=== PATIENT | male | born 1995 | race Caucasian/White ===

== ENCOUNTER 2023-12-22 23:27 | Emergency (ER) | payer SELFPAY ==
--- NOTE | 2023-12-22 23:32 | ED_ITS ---
Discharge Plan Disposition Patient Disposition: Home, Self-Care Referrals Follow up/Referrals: Mathew Mercado DO [Staff Physician] - See instructions Provider,Referral, [Primary Care Provider] - See instructions Activity Restrictions/Add. Instructions Additional Instructions/Restrictions: Please call Dr. Mercado's office on Monday to schedule follow-up in clinic. Please return to the emergency department if you develop any new or worsening symptoms or become concerned for your health. Please keep right arm in sling. Do not bear weight with the right arm until you see Dr. Mercado in clinic. Use wrist splint of the left wrist as needed for pain. Recommend not lifting weight with the left upper extremity if it produces pain. Clinical Impressions Clinical Impression: Left wrist sprain Fracture of radial head, right, closed Qualifiers: Encounter type: initial encounter Fracture alignment: nondisplaced Qualified Code(s): S52.124A - Nondisplaced fracture of head of right radius, initial encounter for closed fracture Discharge ED Provider: Sergo Butler General Adult HPI General Chief complaint: Fall Stated complaint: fall, pain in left arm and wrist Time Seen by Provider: 12/22/23 23:32 History of Present Illness HPI narrative: 28-year-old male without significant past medical history presents with bilateral upper extremity pain after fall from standing. He reports that he had a mechanical fall from standing, braced himself with both arms. He has pain on the left upper extremity from the elbow down to the fingers. He has pain in the right upper extremity from the mid forearm up to the shoulder. This happened approximately 8 hours prior to arrival. He denies any numbness or tingling. He did not take any pain medication prior to arrival. Related Data Allergies Allergy/AdvReac Type Severity Reaction Status Date / Time No Known Allergies Allergy Verified 12/22/23 23:49 [facility] Disclaimer: The information contained in this section may have been updated after the dana nt was seen, as this information can be updated by other users. Social History Smoking Status: Unknown if ever smoked alcohol intake: never current occupational status: employed Travel in the last 8 weeks: None ROS Obtained: Yes All systems reviewed & no additional complaints except as documented Physical Exam General General appearance: alert and in no apparent distress Head Head exam: atraumatic and normocephalic Eye Eye exam: Present normal appearance, PERRL and EOMI ENT ENT exam: Present normal oropharynx and normal external ear exam Neck Neck exam: Present normal inspection and full ROM Chest Chest inspection: Present normal inspection and symmetric chest wall rise; Absent tenderness Respiratory Respiratory exam: Present normal lung sounds bilaterally; Absent respiratory distress Cardiovascular Cardiovascular exam: Present regular rate and normal rhythm Abdominal Exam Abdominal exam: Present soft; Absent distention, tenderness or guarding Extremities Exam Extremities exam: Present other (Tenderness sensation of the left elbow forearm wrist hand with ecchymoses over the dorsal wrist. Tenderness to the right elbow shoulder humerus without obvious deformity. No lacerations noted.) Back Exam Back exam: Present normal inspection; Absent tenderness Neurological Exam Neurological exam: Present alert and oriented X3; Absent motor sensory deficit Psychiatric Psychiatric exam: Present normal affect and normal mood Skin Skin exam: Present warm, dry and normal color Lymphatic Lymphatic Findings: no adenopathy Medical Decision Making Medical Records Medical records reviewed: Yes I reviewed the patient's medical records. Gerardo Inquiry Pt receiving controlled substance: No Gerardo was queried for this patient: No Vital Signs: 12/22/23 23:40 12/23/23 00:30 12/23/23 01:00 Temperature 98.2 F Temperature Source Oral Pulse Rate 78 80 Pulse Rate [Right Brachial] 78 Respiratory Rate 19 20 18 Blood Pressure 108/72 L 124/81 Blood Pressure [Right Arm] 120/99 H Blood Pressure Mean 83 90 Blood Pressure Mean [Right Arm] 106 Blood Pressure Source [Right Arm] Automatic Cuff Blood Pressure Position [Right Arm] Sitting 02 Sat by Pulse Oximetry 98 95 95 Oxygen Delivery Method Room Air Room Air Room Air Lab Data Lab results reviewed: Yes I reviewed the patient's lab results. Orders (Tests/Meds): ED MEDICATIONS Discontinued Medications Generic Name Dose Route Start Last Admin Trade Name Weselyq PRN Reason Stop Dose Admin Acetaminophen 1,000 mg 12/22/23 23:40 12/23/23 00:16 Acetaminophen 500mg Tab PO 12/22/23 23:41 1,000 mg ONCE ONE Administration Ketorolac Tromethamine 30 mg 12/22/23 23:40 12/23/23 00:16 Ketorolac 30mg/Ml Vial IM 12/22/23 23:41 30 mg ONCE ONE Administration ORDERS Category Date Time Status Elbow XR left mininum 3 views [XR elbow LT min 3V] Stat Exams 12/22/23 23:40 Completed Elbow XR right minimum 3 views [XR elbow RT min 3V] Exams 12/22/23 23:40 Completed Stat Forearm XR left 2 views [XR forearm LT 2V] Stat Exams 12/22/23 23:40 Completed Forearm XR right 2 views [XR forearm RT 2V] Stat Exams 12/22/23 23:40 Completed Humerus XR right [XR humerus RT] Stat Exams 12/22/23 23:40 Completed Shoulder XR right miminum 2 views [XR shoulder RT min Exams 12/22/23 23:40 Completed 2V] Stat Wrist XR left minimum 3 views [XR wrist LT min 3V] Stat Exams 12/22/23 23:40 Completed XR hand LT min 3V Stat Exams 12/22/23 23:40 Completed Medical Decision Narrative: 28-year-old male without significant past medical history presents with bilateral upper extremity pain after a mechanical fall from standing.. History was obtained interactive discussion with patient. On arrival, patient is [afebrile, hemodynamically stable, satting appropriately, alert, oriented x4, GCS 15], moving all extremities spontaneously. Full physical exam performed and significant for bilateral upper extremity tenderness as documented above. Differential includes but is not limited to fracture, dislocation, neurovascular/ligamentous injury.. Patient was given p.o. Tylenol, IM Toradol for symptomatic management and correction of underlying abnormalities. Workup initiated including radiographs of the affected extremities.. On re-evaluation, patient [remains afebrile, HD stable.] Imaging independently interpreted by me and significant for right radial head fracture that is not significantly displaced. There is also an unfused osseous center or possibly old fracture of the left ulna, does not appear acute.. See radiology read for full review of final results. Given patient history, exam and workup, patient's presentation most likely represents right radial head fracture and left wrist sprain. Patient was given a right arm sling and a splint for the left wrist. He is given Dr. Mercado's number and instructed to follow-up for further assessment. Instructed to remain nonweightbearing of the right upper extremity until follow-up. Patient was instructed to take Tylenol and ibuprofen as needed for pain. He was discharged in stable condition. Procedures Risk/Benefits of Procedure(s) Were Explained: Yes Critical Care Critical Care Time Critical Care Time: No
[2023-12-22 23:40] VITALS: BP 120/99; PULSE 78; RESP 19; TEMP 36.8; O2SAT 98; BMI 39.0
--- NOTE | 2023-12-22 23:40 | XR_ITS ---
PROCEDURE INFORMATION: Exam: XR Left Hand Exam date and time: 12/22/2023 11:50 PM Age: 28 years old Clinical indication: Pain; Hand; Left; Additional info: Fall pain TECHNIQUE: Imaging protocol: Radiologic exam of the left hand. Views: 3 or more views. COMPARISON: No relevant prior studies available. FINDINGS: Bones/joints: Normal. Soft tissues: Normal. IMPRESSION: No acute findings.
--- NOTE | 2023-12-22 23:40 | XR_ITS ---
PROCEDURE INFORMATION: Exam: XR Right Elbow Exam date and time: 12/22/2023 11:56 PM Age: 28 years old Clinical indication: Pain; Elbow; Right; Additional info: Fall pain TECHNIQUE: Imaging protocol: Radiologic exam of the right elbow. Views: 3 or more views. COMPARISON: CR Humerus R 12/22/2023 11:42 PM FINDINGS: Bones/joints: Nondisplaced fracture of the radial head and neck with slight articular surface depression. No other osseous abnormality. Small elbow joint effusion. Soft tissues: Normal. IMPRESSION: Nondisplaced fracture of the radial head and neck with slight articular surface depression.
--- NOTE | 2023-12-22 23:40 | XR_ITS ---
PROCEDURE INFORMATION: Exam: XR Right Forearm Exam date and time: 12/23/2023 12:00 AM Age: 28 years old Clinical indication: Pain; Lower or forearm; Right; Additional info: Fall pain TECHNIQUE: Imaging protocol: Radiologic exam of the right forearm. Views: 2 views. COMPARISON: CR Elbow R 12/22/2023 11:56 PM FINDINGS: Bones/joints: Normal. Soft tissues: Normal. IMPRESSION: No acute findings.
--- NOTE | 2023-12-22 23:40 | XR_ITS ---
PROCEDURE INFORMATION: Exam: XR Left Wrist Exam date and time: 12/22/2023 11:52 PM Age: 28 years old Clinical indication: Pain; Wrist; Left; Additional info: Fall pain TECHNIQUE: Imaging protocol: Radiologic exam of the left wrist. Views: 3 or more views. COMPARISON: CR XR HAND LT MIN 3V 12/22/2023 11:50 PM FINDINGS: Bones/joints: Normal. Soft tissues: Normal. IMPRESSION: No acute findings.
--- NOTE | 2023-12-22 23:40 | XR_ITS ---
PROCEDURE INFORMATION: Exam: XR Left Elbow Exam date and time: 12/22/2023 11:56 PM Age: 28 years old Clinical indication: Pain; Elbow; Left; Additional info: Fall pain TECHNIQUE: Imaging protocol: Radiologic exam of the left elbow. Views: 3 or more views. COMPARISON: CR Forearm L 12/22/2023 11:55 PM FINDINGS: Bones/joints: No acute fracture or dislocation. Small well-defined ossicle at the medial aspect of the proximal ulna could be an unfused ossification center or the sequela of remote trauma. Soft tissues: Normal. IMPRESSION: No acute fracture or dislocation.
--- NOTE | 2023-12-22 23:40 | XR_ITS ---
PROCEDURE INFORMATION: Exam: XR Right Humerus Exam date and time: 12/22/2023 11:42 PM Age: 28 years old Clinical indication: Pain; Upper arm; Right; Additional info: Fall pain TECHNIQUE: Imaging protocol: Radiologic exam of the right humerus. Views: 2 or more views. COMPARISON: CR Shoulder R 12/22/2023 11:39 PM FINDINGS: Bones/joints: No humeral fracture. Mildly depressed radial head fracture. Soft tissues: Normal. IMPRESSION: 1. No humeral fracture. 2. Mildly depressed radial head fracture.
--- NOTE | 2023-12-22 23:40 | XR_ITS ---
PROCEDURE INFORMATION: Exam: XR Left Forearm Exam date and time: 12/22/2023 11:55 PM Age: 28 years old Clinical indication: Pain; Lower or forearm; Left; Additional info: Fall pain TECHNIQUE: Imaging protocol: Radiologic exam of the left forearm. Views: 2 views. COMPARISON: CR XR WRIST LT MIN 3V 12/22/2023 11:52 PM FINDINGS: Bones/joints: Normal. Soft tissues: Normal. IMPRESSION: No acute findings.
--- NOTE | 2023-12-22 23:40 | XR_ITS ---
PROCEDURE INFORMATION: Exam: XR Right Shoulder Exam date and time: 12/22/2023 11:39 PM Age: 28 years old Clinical indication: Pain; Shoulder; Right; Additional info: Fall, pain TECHNIQUE: Imaging protocol: Radiologic exam of the right shoulder. Views: 2 or more views. COMPARISON: No relevant prior studies available. FINDINGS: Bones/joints: Normal. Soft tissues: Normal. IMPRESSION: No acute findings.
[2023-12-23] MEDS: KETOROLAC 30MG/ML VIAL 30 MG IM (00:16)
[2023-12-23] MEDS: ACETAMINOPHEN 500MG TAB 1000 MG PO (00:16)
[2023-12-23 00:30] VITALS: BP 108/72; PULSE 78; RESP 20; O2SAT 95
[2023-12-23 01:00] VITALS: BP 124/81; PULSE 80; RESP 18; O2SAT 95
--- NOTE | 2023-12-23 01:07 | PC.NURSE ---
Per Dr Butler, pt placed in a left wrist splint and a sling on the right arm. CR
[2023-12-23 01:12] VITALS: BP 124/81; PULSE 84; RESP 19; TEMP 36.8; O2SAT 98
== END 2023-12-23 01:14 | disposition home or self-care (01) ==
LOC: ER 12-23 01:11
PROVIDERS: Emergency Provider Emergency Medicine
DX: S63.502A Unspecified sprain of left wrist, initial encounter (principal); S52.124A Nondisplaced fracture of head of right radius, initial encounter for closed fracture; W18.30XA Fall on same level, unspecified, initial encounter
CPT/HCPCS: 73030; 73060; 73080; 73090; 73110; 73130; 96372; 99284

== ENCOUNTER 2024-01-11 13:23 | Outpatient (CLI) | payer MEDICAID, SELFPAY ==
--- NOTE | 2024-01-11 13:38 | XR_ITS ---
FINAL REPORT CLINICAL HISTORY: Lt Shoulder pain COMPARISON: 12/23/2023 FINDINGS: LEFT SHOULDER 3 views of the left shoulder were obtained. There is no acute fracture or dislocation. Visualized joint spaces are normally aligned. Soft tissues are unremarkable. IMPRESSION: No acute bony abnormality. Reviewed, Interpreted and Dictated by Alejo Cooper MD Transcribed by Geno Murphy Authenticated and [facility]
--- NOTE | 2024-01-11 13:38 | XR_ITS ---
FINAL REPORT CLINICAL HISTORY: Lt elbow pain f/u fracture COMPARISON: None FINDINGS: AP, oblique, and lateral views of the right elbow were obtained. There is no prior exam for comparison. There is no acute fracture or dislocation. There is a small 5 millimeter well-corticated ossific density adjacent to the medial aspect of the elbow, that may be secondary to a remote fracture. Joint space is preserved. There is no joint effusion or other soft tissue abnormality. IMPRESSION: No acute osseous abnormality of the right elbow. Well-corticated ossific density adjacent to the medial elbow, possibly secondary to a remote fracture. Reviewed, Interpreted and Dictated by Alejo Cooper MD Transcribed by Geno Murphy Authenticated and [facility]
--- NOTE | 2024-01-11 13:38 | XR_ITS ---
FINAL REPORT CLINICAL HISTORY: Rt Elbow Pain f/u fracture COMPARISON: 12/22/2023 FINDINGS: AP, oblique, and lateral views of the right elbow were obtained. The previously noted subtle radial head fracture is less evident than seen on the prior exam. Joint space is preserved. No joint effusion is noted on today's exam. IMPRESSION: Previously noted subtle radial head fracture less evident than seen on the prior exam. No joint effusion is noted on today's exam. Reviewed, Interpreted and Dictated by Alejo Cooper MD Transcribed by Geno Murphy Authenticated and [facility]
== END 2024-01-11 23:59 ==
LOC: RAD 13:24
PROVIDERS: PCP Nurse Practitioner Family; Visit Provider Orthopaedic Surgery
DX: M25.512 Pain in left shoulder (principal); M25.521 Pain in right elbow; M25.522 Pain in left elbow
CPT/HCPCS: 73030; 73080

== ENCOUNTER 2024-02-29 12:22 | Outpatient (CLI) | payer MEDICAID, SELFPAY ==
--- NOTE | 2024-02-29 12:26 | XR_ITS ---
FINAL REPORT CLINICAL HISTORY: Rt Radial head fx COMPARISON: 01/11/2024 FINDINGS: RIGHT ELBOW 3 views were obtained. There is a radial head fracture with mild distraction of the fracture fragments. A joint effusion is noted. IMPRESSION: Radial head fracture with mild distraction of the fracture fragments. Reviewed, Interpreted and Dictated by Erik Marroquin III, MD Transcribed by Sulma Ng Authenticated and [facility]
== END 2024-02-29 23:59 | disposition home or self-care (01) ==
LOC: RAD 12:24
PROVIDERS: PCP Nurse Practitioner Family; Visit Provider Orthopaedic Surgery
DX: M25.521 Pain in right elbow (principal); S52.124A Nondisplaced fracture of head of right radius, initial encounter for closed fracture
CPT/HCPCS: 73080

== ENCOUNTER 2024-05-12 16:54 | Emergency (ER) | payer MEDICAID, SELFPAY ==
[2024-05-12 16:56] VITALS: BP 133/99; PULSE 84; RESP 18; TEMP 36.8; O2SAT 95; BMI 37.3
--- NOTE | 2024-05-12 16:57 | PC.NURSE ---
DR ETIENNE AT BEDSIDE
--- NOTE | 2024-05-12 17:04 | XR_ITS ---
PROCEDURE INFORMATION: Exam: XR Right Elbow Exam date and time: 05/12/2024 5:07 PM Age: 29 years old Clinical indication: Pain; Elbow; Right; Additional info: Elbow pain, felt pop while lifting object at work TECHNIQUE: Imaging protocol: Radiologic exam of the right elbow. Views: 3 or more views. COMPARISON: CR XR ELBOW RT MIN 3V 02/29/2024 12:29 PM FINDINGS: Bones/joints: Fracture of the articular margin of the radial head with slight articular margin incongruity redemonstrated and similar to previous x-ray of 02/29/2024. No acute fracture identified. Soft tissues: Normal. IMPRESSION: Stable appearance of the radial head fracture.
--- NOTE | 2024-05-12 17:06 | HMH.EDGENADL ---
Discharge Plan Disposition Patient Disposition: Home, Self-Care Condition: Good Chief Complaint: Extremity Injury, Upper Prescriptions Prescriptions: No Action No Known Home Medications Referrals Follow up/Referrals: Demetrius Cm APRN [Primary Care Provider] - See instructions Activity Restrictions/Add. Instructions Additional Instructions/Restrictions: You can alternate Tylenol and ibuprofen every 4 hours for pain control and ice the extremity no more than 20 minutes at a time. Follow-up with your primary care provider to ensure improving symptoms and return for any new or worsening symptoms. Clinical Impressions Clinical Impression: Muscle strain Instructions Patient Instructions: DI for Muscle Strain Print Language Print Language: Amharic Discharge ED Provider: Laurie Millard General Adult HPI General Chief complaint: Extremity Injury, Upper Stated complaint: right arm pain Time Seen by Provider: 05/12/24 16:56 Mode of Arrival: Ambulatory Source of Information: Patient Limitations: No Limitations Description of Symptoms (Recalled from ER Triage Doc. by RN): r arm pain History of Present Illness HPI narrative: Patient is a 29-year-old male with past medical history of fracture of the right radial head presenting with right arm pain. He states he was at work and he was lifting an object when he felt a pop in his arm and had subsequent right elbow pain. He states it does not feel as bad as his previous fracture and has gotten a little bit better since onset, he did take a Tylenol prior to arrival but he wanted to be checked out before continuing to work. He denies any numbness or tingling. Notes pain most notably with extension of the right elbow. Related Data Home Medications ?Medication ?Instructions ?Recorded ?Confirmed No Known Home Medications 12/28/23 02/29/24 Allergies Allergy/AdvReac Type Severity Reaction Status Date / Time No Known Allergies Allergy Verified 02/29/24 11:42 [facility] Disclaimer: The information contained in this section may have been updated after the patient was seen, as this information can be updated by other users. Social History Smoking Status: Never smoker alcohol intake: never current occupational status: employed Travel in the last 8 weeks: None ROS Obtained: Yes Systems reviewed as appropriate & no additional complaints except as documented Physical Exam General General appearance: alert and in no apparent distress Respiratory Respiratory exam: Present normal lung sounds bilaterally; Absent respiratory distress Cardiovascular Cardiovascular exam: Present regular rate and normal rhythm Extremities Exam Extremities exam: Present normal inspection, full ROM and tenderness (Tenderness to palpation over the medial aspect of the proximal right forearm and elbow, no tenderness over the olecranon process, does have full range of motion but some pain with extension, 2+ radial and ulnar pulses, full range of motion and cardinal hand motions intact of the right hand with no t) Neurological Exam Neurological exam: Present alert and oriented X3 Medical Decision Making Medical Records Medical records reviewed: Yes I reviewed the patient's medical records. Gerardo Inquiry Pt receiving controlled substance: No Gerardo was queried for this patient: No Vital Signs: 05/12/24 16:56 Temperature 98.2 F Temperature Source Oral Pulse Rate [Right] 84 Respiratory Rate 18 Blood Pressure [Right Arm] 133/99 H Blood Pressure Mean [Right Arm] 110 02 Sat by Pulse Oximetry 95 Oxygen Delivery Method Room Air Orders (Tests/Meds): ED MEDICATIONS Discontinued Medications Generic Name Dose Route Start Last Admin Trade Name Freq PRN Reason Stop Dose Admin Ibuprofen 600 mg 05/12/24 17:05 05/12/24 17:14 Ibuprofen 600 Mg Tablet PO 05/12/24 17:06 600 mg ONCE ONE Administration ORDERS Category Date Time Status Elbow XR right minimum 3 views [XR elbow RT min 3V] Exams 05/12/24 17:04 Completed Stat Medical Decision Narrative: Patient is a 29-year-old male with past medical history fracture of the right radius 4 months ago presenting with right elbow pain after lifting object at work earlier today. He does have some pain over the medial aspect of the proximal forearm and elbow, no appreciable swelling, ecchymosis, abrasion and neurovascularly intact distal to site of pain. No shoulder pain. Will obtain imaging for further evaluation. He declines narcotics and given ibuprofen for pain control. X-ray negative for acute process, read demonstrates previous radial head fracture that is comparable to prior imaging. This was discussed with patient and recommended anti-inflammatory medications, icing and he states that today was his weekend and he has 2 days off, recommended symptomatic management which patient is agreeable and discharged in stable condition. Critical Care Critical Care Time Critical Care Time: No
[2024-05-12] MEDS: IBUPROFEN 600 MG TABLET PO (17:14)
--- NOTE | 2024-05-12 17:17 | PC.NURSE ---
pt back from XR
[2024-05-12 19:06] VITALS: BP 130/78; PULSE 80; RESP 18; TEMP 36.7; O2SAT 96
== END 2024-05-12 19:09 | disposition home or self-care (01) ==
PROVIDERS: Emergency Provider Emergency Medicine; PCP Nurse Practitioner Family
DX: S46.911A Strain of unspecified muscle, fascia and tendon at shoulder and upper arm level, right arm, initial encounter (principal); M25.521 Pain in right elbow; X50.0XXA Overexertion from strenuous movement or load, initial encounter
CPT/HCPCS: 73080; 99283